=== PATIENT | female | born 1940 ===

== ENCOUNTER → 2021-01-28 | Outpatient (REF) ==
[2021-01-28 13:34] LABS: CLOSTRIDIUM DIFF A/B POS; CLOSTRIDIUM DIFF A/B INTERP Toxigenic C.diff POS
== END ==
LOC: ZLAB.WCH 10:05
PROVIDERS: Nurse Practitioner
DX: Z01.89 Encounter for other specified special examinations (principal)

== ENCOUNTER 2022-05-12 14:21 | Inpatient (IN) | payer OTHER, MEDICAID ==
[~2022-05-12] VITALS: Ht 157.5 cm; Wt 79.3 kg
[~2022-05-12 14:21] MED LIST: BACTRIM DS 8001 TAB PO
[2022-05-12 14:50] VITALS: BP 122/49; PULSE 93; TEMP 98.5
[2022-05-12 15:49] VITALS: BP 111/40; PULSE 81; TEMP 97.7; TEMP 98.3
[2022-05-12] MEDS ORDERED: LIPITOR20 MG PO (16:09)
[2022-05-12] MEDS ORDERED: CARDIZEM CD 24240 MG PO (16:13)
[2022-05-12] MEDS ORDERED: ATROVENT I0.2 MG/1 M IH (16:21)
[2022-05-12] MEDS ORDERED: ELIQUIS 5MG PO (16:22)
[2022-05-12] MEDS ORDERED: EUCERIN1 CRE TOP (16:24)
[2022-05-12] MEDS ORDERED: HYDRODIURIL50 MG PO (16:26)
[2022-05-12] MEDS ORDERED: XALATAN EYE DROPS OU (16:29)
[2022-05-12] MEDS ORDERED: SYNTHROID0.05 MG/TA PO (16:32)
[2022-05-12] MEDS ORDERED: LEXAPRO 10MG10 MG PO (16:33)
[2022-05-12] MEDS ORDERED: GOOD SENSE400 MG/5 M PO (16:35)
[2022-05-12] MEDS ORDERED: MUCUS RELIEF1200 MG PO (16:37)
[2022-05-12] MEDS ORDERED: MULTI VITAMINS1 TAB PO (16:38)
[2022-05-12] MEDS ORDERED: PROAIR HFA0.09 MG/AC IH (16:39)
[2022-05-12] MEDS ORDERED: 00186-0370-20 IH (16:40)
[2022-05-12] MEDS ORDERED: TYLENOL 325MG325 MG PO (16:41)
[2022-05-12] MEDS ORDERED: ROXANOL 20MG20 MG/ML PO ×2 (16:58→17:04)
--- NOTE | 2022-05-12 18:00 | NUR ---
Pt oriented to room and call light. Shift assessment completed. Pt A&Ox4, at times forgetful. 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 Pt O2 at 89% on 4L per NC. Bumped pts O2 to 5L and O2 sat 93% upon reassessment. Pt denies any SOB at this time, although pt sits in tripod position. Telemetry on. INT in R AC intact; ecchymosis noted. BLE oozing clear fluid; ABD dressings and michelle wraps replaced x1 during this shift. Dinner order placed. No further requests at this time. Call light within reach.
--- NOTE | 2022-05-12 19:11 | NUR ---
PT STARTLED AWAKE WITH PULSE OX. PT UNABLE TO ANSWER QUESTIONS. SHE APPEARS TO BE CONFUSED REGARDING THE BREATHING TREATMENT AND TRIED TO RIP OFF MASK. UNABLE TO HOLD TREATMENT WITH HAND. PT ABLE TO COMPLETE MOST OF TREATMENT BEFORE TAKING OFF. HER WORK OF BREATHING HAS INCREASED WITH ANXIETY. WHEN ASKED IF SHE WEARS OXYGEN AT HOME SHE STATES "I DIDNT HAVE TO TILL I GOT PUT IN THAT HOME". UNABLE TO TELL ME HOW MUCH O2 SHE WEARS. AFTER TREATMENT WITH MASK SHE APPEARS TO BE SETTLING DOWN BUT STILL APPEARS AGGITATED AND FIDGETY. CHECKED SATS POST TREATMENT AND SATS WERE 88%. PLACED BACK ON 5L NC TO GET SATS BACK UP TO 92% NO OTHER COMPLAINTS OR CONCERNS VOICED.
[2022-05-12 19:35] VITALS: BP 103/46; PULSE 80; TEMP 99.3
--- NOTE | 2022-05-12 21:46 | NUR ---
Patient assessed around 1944. Patient drowsy, but does awaken. Will only say a few words at a time. Denies pain and discomfort. On oxygen at 5 L/min via NC. Dressings to BLE CDI. Voices no questions, needs, or concerns at this time, states she is just tired and wants to rest. In bed with call light within reach. High fall risk precautions in place. Bed alarm on.
[2022-05-13] VITALS (20 sets, daily range): BP systolic 103–121; BP diastolic 45–73; PULSE 10–123; TEMP 97.7–99
--- NOTE | 2022-05-13 01:09 | NUR ---
PT RESTING IN BED COMFORTABLY. INTERMITTENT NON PRODUCTIVE COUGH. ABLE TO WEAN PT FROM 5.5L TO 4L HFNC. TOLERATING WELL WHILE IN ROOM AND WATCHING SATS, O2 DID NOT DROP UNDER 95% PT DID NOT LIKE WEARING MASK. NEBULIZER HELD FOR PT. PT AGREED. PT SLEPT THROUGH MOST OF TREATMENT. NO SIGNS OF DISTRESS. REPORTED TO RN THAT O2 WAS DECREASED AND PT WAS TOLERATING WELL.
--- NOTE | 2022-05-13 05:16 | NUR ---
Patient continues on oxygen at 4 L/min via NC at this time. Denies having pain and discomfort. Used bedside commode during the night. Voices no questions, needs, or concerns at this time. In bed with call light within reach. High fall risk precautions in place. Bed alarm on.
[2022-05-13 06:20] LABS: MEAN CELL VOLUME 84 fl (80.0-100.0); MEAN CORPUSCULAR HGB CONC 30 g/dl (33.0-37.0); PLATELET COUNT 212 K/mm3 (130-400); RED BLOOD COUNT 2.69 M/mm3 (4.10-5.30); REDCELL DISTRIBUTION WIDTH-CV 17.1 % (11.5-14.5)
[2022-05-13 06:27] LABS: HEMATOCRIT 22.7 % (37.0-47.0); HEMOGLOBIN 6.7 g/dl (12.5-16.0); MEAN CORPUSCULAR HEMOGLOBIN 25 pg (27-31)
[2022-05-13 06:35] LABS: CALCIUM 8.3 mg/dL (8.4-10.2); CREATININE, serum 2.79 mg/dL (0.57-1.11); POTASSIUM 4.3 mmol/L (3.5-4.5)
--- NOTE | 2022-05-13 07:41 | NUR ---
UPDATED RICA TUCKER, THAT PATIENT IS DUE TO RECEIVE BLOOD THIS MORNING SHE HAS A HGB OF 6.7, BUT THAT PATIENT ONLY HAS A 22G FOR IV ACCESS. REQUESTED ORDER BE PLACED FOR A PICC INSERTION. WILL FOLLOW UP WITH [facility] TEAM AT 0800.
[2022-05-13 07:55] LABS: BAND 4 % (0-10); LYMPHOCYTE 3 % (20.0-51.0); NEUTROPHILS 93 % (42.0-75.2)
[2022-05-13 07:57] LABS: ANISOCYTOSIS 1+; PLATELET ESTIMATE NORMAL (NORMAL)
[2022-05-13 07:59] LABS: HYPOCHROMIA 3+
[2022-05-13 08:00] LABS: OVALOCYTES 1+
--- NOTE | 2022-05-13 08:01 | NUR ---
SHIFT ASSESSMENT COMPLETED. PATIENT IS ALERT AND ORIENTED X4. DENIES ANY PAIN. CELLULITIS TO BLE WITH SOME REDNESS AND WEEPING, ABD PADS AND TO WRAPS IN PLACE. LUNGS DIMINISHED THROUGHOUT, EXPIRATORY WHEEZES NOTED TO RIGHT LUNG LOPEZ. DENIES NEEDS AT THIS TIME. AWAITING PICC PLACEMENT. CALL LIGHT WITHIN REACH, BED IN LOWEST, LOCKED POSITION.
[2022-05-13 10:40] LABS: RETIC % 2.5 % (0.5-3.52)
[2022-05-13 10:43] LABS: RETIC # 0.06 M/mm3 (0.02-0.16)
--- NOTE | 2022-05-13 10:43 | NUR ---
Initial visit; Patient thanked Rn Paralegal for looking in on her, listening and offering prayer and to keep her in Rn Paralegal's prayers.
--- NOTE | 2022-05-13 13:26 | NUR ---
PATIENT TACHYCARDIC WITH HEART RATE IN THE 120S. HOSPITALIST UPDATED, NEW ORDER FOR EKG RECEIVED, WHICH SHOWED AFLUTTER WITH RVR. HOSPITALIST UPDATED, AWAITING NEW ORDERS. O2 SATURATION NOTED TO BE 87% ON 3L O2 VIA HFNC, O2 INCREASED TO 5L. RT UPDATED. PER PA, STAFF TO HOLD ON BLOOD ADMINISTRATION FOR NOW AND WAIT FOR FURTHER INSTRUCTION. PATIENT ASYMPTOMATIC AT THIS TIME.
--- NOTE | 2022-05-13 13:46 | NUR ---
UPDATE RECEIVED BY CAITLIN STRAUSS. PATIENT OKAY TO RECEIVE BLOOD AT THIS TIME. CARDIOLOGY CONSULTED. DR. OROPEZA ASSESSING PATIENT AT BEDSIDE. DENIES ANY NEEDS. BLOOD INFUSING AT THIS TIME, NO COMPLICATIONS NOTED.
--- NOTE | 2022-05-13 13:58 | NUR ---
PATIENT WITH HX OF MASECTOMY AND LYMPH NODE REMOVAL TO LEFT ARM. PATIENT ALSO WITH CELLULITIS TO BLE. UNABLE TO TAKE BLOOD PRESSURE IN LEFT UPPER EXTREMITY OR BLE. [facility] CONTACT, PER ARIANE BERNARD TO CHECK BLOOD PRESSURES IN RIGHT LOWER EXTREMITY DESPITE PICC PLACEMENT.
--- NOTE | 2022-05-13 15:03 | NUR ---
[employer] Civil Engineer met with patient to discuss discharge planning. Patient lives at [facility] and although patient's chart says her primary care is Dr. Butler, patient stated she has no doctor. Patient also stated she is starting to have some memory loss. Patient thinks she is on oxygen at and normally uses a wheelchair. Patient thinks either her son, Jb (ph#[phone]) or sister, Tyrese (ph#[phone]) would be her DPOA-HC. Patient plans to return to once ready for discharge. SW contacted [facility] and left a message for Ann with admissions. SW faxed clinical updates. SW also contacted patient's son, Jb who advised he thought he was patient's DPOA, however [facility] reported to him that Tyrese is designated. SW to request copy from once Ann returns SW call. Discharge Plan: [facility]
--- NOTE | 2022-05-13 15:45 | NUR ---
PATIENT WITH ELEVATED HR IN THE 120S. DR. LOPEZ AT BEDSIDE, PATIENT RECEIVED ADENOSINE IV X1 ADMINISTERED BY RAISE MINER. PT TOLERATED WELL, VITAL SIGNS STABLE OTHER THAN TACHYCARDIA. PT TO START ON AMIODARONE GTT PER DR. LOPEZ.
[2022-05-13 17:19] LABS: HEMATOCRIT 24.8 % (37.0-47.0); HEMOGLOBIN 7.6 g/dl (12.5-16.0)
--- NOTE | 2022-05-13 19:14 | NUR ---
PT RESTING IN BED COMFORTABLY. SHE IS HOOKED UP TO A MONITOR AND PROBE IS ON EAR. SHE IS WATCHING TV WHILE TAKING TREATMENT. DECLINED TO STRAP ON MASK BUT STATED SHE WOULD HOLD TO FACE. NO OTHER COMPLAINTS VOICED BT PT AT THIS TIME. NO COMPLICATIONS. NO DISTRESS NOTED. WHILE TAKING BUDESONIDE TX PT BEGAN DOZING OFF.
--- NOTE | 2022-05-13 19:48 | NUR ---
PATIENT UP IN BED AT THIS TIME EATING DINNER. CONTINUES ON AMIODARONE GTT. VITAL SIGNS STABLE, HR CONTINUES TO BE AROUND 115. OTTO CATH PLACED BY GROUP HOME PARAPROFESSIONAL, URINE SAMPLE SENT TO LAB. DENIES ANY PAIN. REPORT GIVEN TO HS NURSE AND AMIODARONE GTT CHECKED AT BEDSIDE WITH HS NURSE. PATIENT DENIES ANY NEEDS AT THIS TIME. CALL LIGHT WITHIN REACH. ATTEMPTED TO GIVE UPDATE TO SON, EDDIE, BUT NO ANSWER. VM LEFT WITH CALL BACK NUMBER.
--- NOTE | 2022-05-13 22:36 | NUR ---
Patient assessed around 1950. Denies pain and discomfort. PICC to RUE. Amiodarone drip running per orders, decreased rate per orders around 2200. On oxygen at 4 L/min via NC. Voices no questions, needs, or concerns at this time. In bed with call light within reach. High fall risk precautions in place. Bed alarm on.
[2022-05-13 23:15] LABS: COLLECTION METHOD IN
[2022-05-13 23:29] LABS: URINE APPEARANCE Clear (CLEAR/HAZY); URINE COLOR Yellow (YELLOW)
[2022-05-13 23:30] LABS: URINE BLOOD Negative (NEGATIVE); URINE GLUCOSE Negative (NEGATIVE); URINE KETONE Negative (NEGATIVE); URINE NITRATE Negative (NEGATIVE); URINE PROTEIN(semi-quant) Negative (NEGATIVE); URINE UROBILINOGEN 0.2 E.U/dL (0.2-1.0)
[2022-05-13 23:40] LABS: MUCOUS Present (NOT PRESENT); SQUAMOUS EPITHELIAL 0-2 /hpf (0-10); URINE BACTERIA Rare /hpf (NONE SEEN); URINE RBC None Seen /hpf (0-2)
[2022-05-14] VITALS (10 sets, daily range): BP systolic 11–118; BP diastolic 57–69; PULSE 114–122; TEMP 97.6–98.3
--- NOTE | 2022-05-14 02:26 | NUR ---
PT RESTING IN BED. TOLERATED TX WELL. NO DISTRESS NOTED. NO CONCERNS VOICED. NO COMPLICATIONS. PT WATCHING TV DURING TREATMENT. CALL LIGHT WITHIN REACH.
--- NOTE | 2022-05-14 05:51 | NUR ---
Patient denies having pain and discomfort this shift. Continues on Amiodarone drip per orders. Telemetry continues to show A-flutter. Voices no questions, needs, or concerns at this time. In bed with call light within reach. Continues on oxygen at 4 L/min via NC.
[2022-05-14 06:28] LABS: MEAN CELL VOLUME 86 fl (80.0-100.0); MEAN CORPUSCULAR HGB CONC 30 g/dl (33.0-37.0); PLATELET COUNT 229 K/mm3 (130-400); RED BLOOD COUNT 2.92 M/mm3 (4.10-5.30); REDCELL DISTRIBUTION WIDTH-CV 17.2 % (11.5-14.5)
[2022-05-14 06:32] LABS: HEMOGLOBIN 7.4 g/dl (12.5-16.0); MEAN CORPUSCULAR HEMOGLOBIN 25 pg (27-31)
[2022-05-14 06:43] LABS: CALCIUM 8.4 mg/dL (8.4-10.2); CREATININE, serum 2.94 mg/dL (0.57-1.11); POTASSIUM 3.5 mmol/L (3.5-4.5)
--- NOTE | 2022-05-14 07:00 | NUR ---
PT RESTING IN BED. PT DENIES NEEDS AT THIS TIME. PT HAS CALL LIGHT WITHIN REACH AND INSTRUCTED TO CALL WITH ALL NEEDS.
[2022-05-14 07:18] LABS: BAND 2 % (0-10); LYMPHOCYTE 3 % (20.0-51.0); NEUTROPHILS 95 % (42.0-75.2)
[2022-05-14 07:21] LABS: ANISOCYTOSIS 1+; HYPOCHROMIA 3+; PLATELET ESTIMATE NORMAL (NORMAL)
--- NOTE | 2022-05-14 10:24 | NUR ---
PT'S OXYGEN SATS DROPPED TO 81% WHILE WORKING WITH PT. OXYGEN INCREASED TO 10L AND SATS UP TO 93. OXYGEN TURNED DOWN TO 8L. NOTIFIED.
--- NOTE | 2022-05-14 14:08 | NUR ---
Customer Account Technician faxed clinical updates to [facility]. LISA contacted Ann at [facility] and requested DPOA-HC. Ann faxed it to LISA. DPOA-HC designates patient's sister, Tyrese. Ann advised family thought it was changed to patient's son, but they have no documentation of that.
--- NOTE | 2022-05-14 22:54 | NUR ---
Verena assessed around 1944. Alert and oriented. Son in room and updated on plan of care for tomorrow. All questions answered, and voiced understanding. NPO after midnight for cardioversion tomorow. On oxygen at 4 L/min via NC. Voices no questions, needs, or concerns at this time. In bed with call light within reach. High fall risk precautions in place. Bed alarm on.
[2022-05-15] VITALS (12 sets, daily range): BP systolic 106–164; BP diastolic 51–76; PULSE 72–125; TEMP 97.6–98.4
--- NOTE | 2022-05-15 05:44 | NUR ---
Patient continues on Amiodarone drip per ordres. Planning for cardioversion today. Asked patient if she felt comfortable signing consent, but patient stated she did not remember talking to ventilation worker about procedure. Patient does have intermittent confusion. Patient remains in A-flutter on telemetry. Voices no questions, needs, or concerns at this time. In bed with call light within reach. High fall risk precautions in place. Bed alarm on.
[2022-05-15 06:25] LABS: MEAN CELL VOLUME 86 fl (80.0-100.0); MEAN CORPUSCULAR HGB CONC 30 g/dl (33.0-37.0); PLATELET COUNT 261 K/mm3 (130-400); RED BLOOD COUNT 3.07 M/mm3 (4.10-5.30); REDCELL DISTRIBUTION WIDTH-CV 17.3 % (11.5-14.5)
[2022-05-15 06:35] LABS: CALCIUM 8.4 mg/dL (8.4-10.2); HEMATOCRIT 26.4 % (37.0-47.0); HEMOGLOBIN 7.8 g/dl (12.5-16.0); MAGNESIUM 2.2 mg/dL (1.6-2.6); MEAN CORPUSCULAR HEMOGLOBIN 25 pg (27-31); POTASSIUM 3.7 mmol/L (3.5-4.5)
[2022-05-15 08:02] LABS: ANISOCYTOSIS 1+; BAND 4 % (0-10); HYPOCHROMIA 2+; LYMPHOCYTE 6 % (20.0-51.0); NEUTROPHILS 89 % (42.0-75.2); NUCLEATED RED BLOOD CELL 1 (0-6); POIKILOCYTOSIS 1+; SCHISTOCYTES 1+
--- NOTE | 2022-05-15 08:45 | NUR ---
PICC intact right upper arm with small amount of dried reddish drainage noted on dressing. sterile dressing change done. no further drainage noted.
--- NOTE | 2022-05-15 10:18 | NUR ---
Follow-up visit; Patient thanked [employer] for looking in on her again and proudly introduced three members of her family. [employer] visited awhile and offered God's blessings to Myrtle and her family.
--- NOTE | 2022-05-15 10:23 | NUR ---
Patient son, Jb, and Jb's daughter at bedside. Discussed patient wishes for no aggressive care and to return back to group home with hospice. Provided MCR list of available hospice agencies and bJ chose [facility]. He has already been in contact with them and is meeting in person at this time. Discussed comfort care as well while the patient remains at [facility]; no answer yet at this time.
--- NOTE | 2022-05-15 10:31 | NUR ---
Call placed to babs's sister, Tyrese. She is under the impression that the patient's son, Jb, is the DPOA but was thankful for the update. She plans to talk with Jb later today and I provided my contact information if she has any questions arise.
--- NOTE | 2022-05-15 11:39 | NUR ---
SHIFT ASSESSMENT COMPLETED AND MORNING MEDICATIONS ADMINISTERED PER ORDER. PATIENT IS ALERT AND ORIENTED X4. LUNGS DIMINISHED THROUGHOUT. SOB WITH EXERTION, ON 4L O2 VIA HFNC. LEFT ARM RESTRICTION WITH ARM BAND IN PLACE. PICC TO RIGHT UPPER ARM WITH AMIODARONE GTT RUNNING. BOTH PORTS PATENT WITH BLOOD RETURN. DENIES ANY PAIN. PATIENT TO HAVE CARDIOVERSION TODAY, CONSENT SIGNED BY PATIENT AND PLACED IN CHART, SON, EDDIE UPDATED AND AGREEABLE WELL TO CARDIOVERSION. DENIES ANY NEEDS AT THIS TIME. CALL LIGHT IN PLACE.
--- NOTE | 2022-05-15 13:03 | NUR ---
PATIENT RETURNED FROM RV BODY MECHANIC AT APPROX. 1245. ALERT AND ORIENTED X4. VITAL SIGNS WITHIN NORMAL LIMITS FOR PATIENT. DENIES PAIN. SWALLOWING REFLEX INTACT. PATIENT TO CHANGE TO PO AMIODARONE. PER CARDIOLOGY, AMIODARONE GTT TO CONTINUE UNTIL PO DOSE OF AMIODARONE IS GIVEN, THEN RN TO D/C AMIODARONE GTT. PATIENT DENIES NEEDS AT THIS TIME. CALL LIGHT WITHIN REACH.
--- NOTE | 2022-05-15 13:52 | NUR ---
AMIODARONE GTT DISCONTINUED PER ORDER. PATIENT RECEIVED MORNING MEDICATIONS AT THIS TIME DUE TO BEING NPO FOR PROCEDURE. DENIES PAIN OR NEEDS AT THIS TIME.
--- NOTE | 2022-05-15 16:10 | NUR ---
Timber Hewer collaborated with Anitha Palliative RN who advised patient and family want to pursue hospice and return to [facility]. Medicare.gov list of hospice agencies provided and patient selected [facility]. SW faxed referral to [facility]. SW collaborated with team and patient to have cardioversion today, discharge back to [facility] tomorrow with [facility]. SW contacted Leonardo with [facility] who advised they can do an admit tomorrow. LISA contacted Ann at who advised they can accept patient back tomorrow. SW updated patient and patient's son, Jb. All are in agreement. Discharge Plan: [facility] with [facility]
--- NOTE | 2022-05-15 18:34 | NUR ---
PATIENT UP IN BED AT THIS TIME EATING. DENIES ANY PAIN. O2 IS 95% ON 5L O2 VIA HFNC. PATIENT DESATS VERY QUICKLY WITH ACTIVITY. ELIZABETH DIAZ UPDATED REGARDING POSITIVE HEMACULT. PATIENT DENIES ANY NEEDS AT THIS TIME. CALL LIGHT WITHIN REACH.
--- NOTE | 2022-05-15 20:00 | NUR ---
Pt sitting up in bed, expresses feeling better when sitting up than when lying down. A&O x4. Shift assessment completed. DONNIE PICC line is CDI. Currently 4.5L of O2 per NC. Folley catheter in place. Tele on. No pain or discomfort are reported at this time. Pt possibly discharging today. Fall precautions in place. Call light within reach.
[2022-05-16 03:10] VITALS: BP 122/55; PULSE 75; TEMP 97.8
[2022-05-16 07:16] LABS: BASO % 0.1 % (0.0-2.0); GRAN # 8.6 K/mm3 (1.4-6.5); GRAN % 93.9 % (42.2-75.2); LYMPH # 0.3 K/mm3 (1.2-3.4); LYMPH % 3.7 % (20.0-51.0); MEAN CELL VOLUME 84 fl (80.0-100.0); MEAN CORPUSCULAR HGB CONC 30 g/dl (33.0-37.0); MEAN PLATELET VOLUME 9.8 fl (7.4-10.4); MONO # 0.2 K/mm3 (0.1-0.6); MONO % 1.6 % (1.7-9.3); PLATELET COUNT 231 K/mm3 (130-400); RED BLOOD COUNT 2.82 M/mm3 (4.10-5.30); REDCELL DISTRIBUTION WIDTH-CV 17.5 % (11.5-14.5)
[2022-05-16 07:21] LABS: CALCIUM 8.3 mg/dL (8.4-10.2); CREATININE, serum 3.12 mg/dL (0.57-1.11); POTASSIUM 3.8 mmol/L (3.5-4.5)
[2022-05-16 07:22] LABS: HEMATOCRIT 23.6 % (37.0-47.0); MEAN CORPUSCULAR HEMOGLOBIN 25 pg (27-31)
[2022-05-16 07:39] VITALS: BP 122/55; PULSE 70; TEMP 97.5
[2022-05-16] MEDS ORDERED: MONODOX100 PO (09:14)
[2022-05-16] MEDS ORDERED: IPRATROPIUM BROM3 M1 IH (09:14)
[2022-05-16] MEDS ORDERED: MEDROL 4MG DOSPA4 MG PO (09:20)
[2022-05-16] MEDS ORDERED: PROTONIX 40MG T40 MG PO (09:21)
[2022-05-16] MEDS ORDERED: PACERONE200 MG PO (09:23)
[2022-05-16] MEDS ORDERED: ROXANOL 20MG20 MG/ML PO (09:54)
[2022-05-16] MEDS ORDERED: ATIVAN 1MG T1 MG/TAB PO (09:54)
--- NOTE | 2022-05-16 11:05 | NUR ---
SHIFT ASSESSMENT COMPELTED AND MEDICATIONS ADMINISTERED PER ORDER. PATIENT IS ALERT AND ORIENTED X4. DENIES PAIN. SOB WITH ACTIVITY. LUNGS DIMINISHED THROUGHOUT. PICC TO RIGHT UPPER ARM PATENT WITH BLOOD RETURN TO BOTH PORTS. PATIENT IS TO DISCHARGE TODAY TO HOSPICE. DENIES NEEDS AT THIS TIME. CALL LIGHT WITHIN REACH.
[2022-05-16 11:11] VITALS: BP 136/55; PULSE 73; TEMP 97.8
--- NOTE | 2022-05-16 11:17 | NUR ---
LISA informed that patient would be DCing to [facility] with [facility] services to assist. Each facility contacted to inform. LISA called ramsey Muhammad several times to inform, but was unable to reach. [facility] contact will be reaching back out to set up transportation information. [employer] faxed to [phone].
--- NOTE | 2022-05-16 13:00 | NUR ---
Recevied call from patient's primary nurse, patient will be discharging this afternoon and need her PICC line removed. Once at bedside, this RN confirms patient ID and orders for discharge. PICC from DONNIE removed, patient does have some bleeding that required pressure to be held. Once oozing stopped, 4x4 guaze placed over insertion site and covered with Tegaderm. Patient tolerated procedure well. Primary nurse updated.
--- NOTE | 2022-05-16 13:31 | NUR ---
PATIENT DISCHARGED TO [facility] PER ORDER. PICC REMOVED PRIOR TO DISCHARGE BY DREDGE PUMP OPERATOR. OTTO CATHETER REMOVED PRIOR TO DISCHARGE, PATIENT TOLERATED WELL. 1400 AMIODARONE DOSE GIVEN PRIOR TO DISCHARGE PER REQUEST OF RECEIVING FACILITY. PATIENT DENIES PAIN, NEEDS, QUESTIONS, OR CONCERNS. REPORT GIVEN TO SHALOM AT [facility], WHO DENIES ANY QUESTIONS OR CONCERNS.
== END 2022-05-16 13:30 | disposition hospice, inpatient (51) | DRG 280 ==
LOC: MEDICAL 14:21
PROVIDERS: Internal Medicine; Physician Assistant; Registered Nurse; ADMIT Student in an Organized Health Care Education/Training Program
PROC: 30243N1 Transfusion of Nonautologous Red Blood Cells into Central Vein, Percutaneous Approach (ICD-10-PCS; principal; 2022-05-13)
PROC: 02HV33Z Insertion of Infusion Device into Superior Vena Cava, Percutaneous Approach (ICD-10-PCS; 2022-05-13)
PROC: 5A2204Z Restoration of Cardiac Rhythm, Single (ICD-10-PCS; 2022-05-15)
DX: I13.0 Hypertensive heart and chronic kidney disease with heart failure and stage 1 through stage 4 chronic kidney disease, or unspecified chronic kidney disease (principal); I50.33 Acute on chronic diastolic (congestive) heart failure; I21.A1 Myocardial infarction type 2; J96.21 Acute and chronic respiratory failure with hypoxia; J18.9 Pneumonia, unspecified organism; J44.1 Chronic obstructive pulmonary disease with (acute) exacerbation; Z66 Do not resuscitate; Z51.5 Encounter for palliative care; N17.9 Acute kidney failure, unspecified; I48.92 Unspecified atrial flutter; J91.8 Pleural effusion in other conditions classified elsewhere; L03.116 Cellulitis of left lower limb; L03.115 Cellulitis of right lower limb; D62 Acute posthemorrhagic anemia; J44.0 Chronic obstructive pulmonary disease with (acute) lower respiratory infection; F32.A Depression, unspecified; E78.5 Hyperlipidemia, unspecified; E03.9 Hypothyroidism, unspecified; E11.22 Type 2 diabetes mellitus with diabetic chronic kidney disease; D72.829 Elevated white blood cell count, unspecified; I87.2 Venous insufficiency (chronic) (peripheral); F03.90 Unspecified dementia, unspecified severity, without behavioral disturbance, psychotic disturbance, mood disturbance, and anxiety; K21.9 Gastro-esophageal reflux disease without esophagitis; I27.20 Pulmonary hypertension, unspecified; D50.9 Iron deficiency anemia, unspecified; I08.0 Rheumatic disorders of both mitral and aortic valves; N18.30 Chronic kidney disease, stage 3 unspecified; H40.9 Unspecified glaucoma; N26.1 Atrophy of kidney (terminal); Z86.718 Personal history of other venous thrombosis and embolism; Z85.3 Personal history of malignant neoplasm of breast; Z87.891 Personal history of nicotine dependence; Z88.8 Allergy status to other drugs, medicaments and biological substances; Z79.01 Long term (current) use of anticoagulants; Z99.81 Dependence on supplemental oxygen; Z79.890 Hormone replacement therapy
CPT/HCPCS: C1751; J0153; J0282; J0696; J1756; J1940; J2704; J2920; J2930; J7060; P9016